=== PATIENT | male | born 1995 | race Caucasian/White ===

== ENCOUNTER 2017-11-15 01:22 | Emergency (ER) | payer MEDICAID, OTHER ==
[~2017-11-15] VITALS: Ht 188 cm; Wt 81.0 kg
[2017-11-15] MEDS ORDERED: LIDOCAINE 1%-EPI 1:100K, 30ML ONE (01:44)
[2017-11-15] MEDS ORDERED: LIDOCAINE 1%-EPI 1:100K, 30ML INFIL ONE (02:00)
[2017-11-15 02:22] VITALS: BP 129/85
[2017-11-15] MEDS ORDERED: CEFAZOLIN 1,000 MG IM ONE (03:30)
[2017-11-15] MEDS ORDERED: CEFAZOLIN 1,000 MG ONE (03:47)
== END 2017-11-15 04:07 | disposition home or self-care (01) ==
LOC: ED 03:49
DX: S51.821A Laceration with foreign body of right forearm, initial encounter (principal); F17.210 Nicotine dependence, cigarettes, uncomplicated; X58.XXXA Exposure to other specified factors, initial encounter; Y93.89 Activity, other specified; Y92.009 Unspecified place in unspecified non-institutional (private) residence as the place of occurrence of the external cause; Y99.8 Other external cause status
CPT/HCPCS: 12052; 73090; 96372; 99284; J0690; 29105